=== PATIENT | male | born 1955 | race African-American/Black ===

== ENCOUNTER 2016-06-27 06:41 | Emergency (ER) | payer MEDICAID | END 2016-06-27 07:50 | disposition home or self-care (01) | LOC: D.ER 06:41 | DX: K04.7 Periapical abscess without sinus (principal); K08.89 Other specified disorders of teeth and supporting structures; K02.9 Dental caries, unspecified; E11.9 Type 2 diabetes mellitus without complications; I10 Essential (primary) hypertension ==

== ENCOUNTER 2016-12-30 12:27 | Emergency (ER) | payer MEDICAID | END 2016-12-30 14:26 | disposition home or self-care (01) | LOC: D.ER 12:27 | DX: S02.5XXA Fracture of tooth (traumatic), initial encounter for closed fracture (principal); X58.XXXA Exposure to other specified factors, initial encounter; Y93.89 Activity, other specified; Y92.029 Unspecified place in mobile home as the place of occurrence of the external cause; K08.89 Other specified disorders of teeth and supporting structures; I10 Essential (primary) hypertension; E11.9 Type 2 diabetes mellitus without complications ==

== ENCOUNTER 2017-02-12 22:48 | Emergency (ER) | payer MEDICAID | END 2017-02-13 00:20 | disposition home or self-care (01) | LOC: D.ER 22:48 | DX: J11.1 Influenza due to unidentified influenza virus with other respiratory manifestations (principal); I10 Essential (primary) hypertension; E11.9 Type 2 diabetes mellitus without complications ==